=== PATIENT | female | born 1990 | race Caucasian/White ===

== ENCOUNTER 2016-07-13 09:03 | Emergency (ER) | payer OTHER ==
[~2016-07-13] VITALS: Ht 157.5 cm; Wt 110.0 kg
[~2016-07-13 09:03] MED LIST: ACET500C5 PO; ALBU18HF IH; ALBU8.5H5 INH; IBUP-725; PRED20TA PO
[2016-07-13 09:06] VITALS: Ht 157.5 cm; Wt 110.0 kg
[2016-07-13] MEDS ORDERED: SOD CHLORIDE 0.9% 1,000 ML IV STA (10:00)
[2016-07-13] MEDS ORDERED: KETOROLAC 30 MG INJ IV STA (10:00)
[2016-07-13] MEDS ORDERED: FAMOTIDINE 20 MG INJ IV ONE (10:00)
--- NOTE | 2016-07-13 10:03 | ERD ---
ER Documentation Chief Complaint Date/Time DATE: 07/13/16 Chief Complaint Abdominal pain HPI The patient is a 26-year-old female who presents to the Emergency Department with complaint of abdominal pain for the past 3 days. The patient reports that her pain is localized to the epigastric region of her abdomen, and radiates to the right upper quadrant. The pain is intermittent and aching in nature, which she currently rates as 6 out of 10. The patient notes a decreased appetite, but otherwise denies any nausea, vomiting or diarrhea. Denies any black or bloody stools. Denies any dysuria, hematuria or flank pain. Denies any fevers or chills. Last bowel movement was this morning, and normal. Denies any history of similar symptoms in the past. ROS All systems reviewed and are negative except as per history of present illness. Medications Home Meds Active Scripts Ibuprofen* (Motrin*) 600 Mg Tab, 600 MG PO Q6, #30 TAB Prov:BELINDA LEWIS PA-C 07/13/16 Famotidine* (Pepcid*) 20 Mg Tablet, 20 MG PO BID for 5 Days, TAB Prov:BELINDA LEWIS PA-C 07/13/16 Hydrocodone/Acetaminophen (Madison 5-325 Tablet) 1 Each Tablet, 1 EACH PO Q4, #15 TAB Prov:BELINDA LEWIS PA-C 07/13/16 Acetaminophen* (Tylophen*) 500 Mg Capsule, 1 CAP PO Q6H Y for PAIN AND OR ELEVATED TEMP, #20 CAP Prov:YUAN MULLEN 11/23/14 Prednisone* (Prednisone*) 20 Mg Tab, 40 MG PO DAILY for 4 Days, TAB Prov:YUAN MULLEN 11/23/14 Albuterol Sulfate* (Albuterol Sulfate* HFA) 8.5 Gm Hfa.aer.ad, 1-2 PUFF INH Q4 Y for SHORTNESS OF BREATH, #1 EA Prov:JERE TAN NP 11/18/14 Reported Medications Albuterol Sulfate* (Ventolin HFA*) 18 Gm Hfa.aer.ad, 18 GM IH DAILY 03/04/12 Ibuprofen (Motrin) 400 Mg Tablet 01/13/12 Allergies Allergies: Uncoded Allergies: SHRIMP (Allergy, Unknown, ITCHY THROAT RASH, 11/08/09) PMhx/Soc History of Surgery: Yes ( X 2) Anesthesia Reaction: No Hx Neurological Disorder: No Hx Respiratory Disorders: Yes (asthma) Hx Cardiac Disorders: No Hx Psychiatric Problems: No Hx Miscellaneous Medical Probl: No Hx Alcohol Use: No Hx Substance Use: No Hx Tobacco Use: No Smoking Status: Never smoker Physical Exam Vitals Vital Signs Date Time Temp Pulse Resp B/P Pulse Ox O2 Delivery O2 Flow Rate FiO2 07/13/16 09:06 97.8 62 18 122/62 99 Physical Exam GENERAL: Well-developed, well-nourished, in no acute distress HEENT: Head is normocephalic, atraumatic. No scleral pallor or icterus. Conjunctiva pink. Moist mucous membranes. NECK: Supple. Full range of motion. RESPIRATORY: Lungs are clear to auscultation bilaterally. Equal breath sounds. Normal expiratory effort. CARDIOVASCULAR: Regular rate and rhythm. S1 and S2 normal. GASTROINTESTINAL: Abdomen is soft and nondistended. Tenderness to palpation over the epigastric region and right upper quadrant of the abdomen. Negative Christine's sign. No guarding, no rebound tenderness. Normal bowel sounds. No gross peritonitis. No tenderness at McBurney's point. FLANK: No CVA tenderness, no mass or swelling. EXTREMITIES: No clubbing, cyanosis, or edema. Normal skin perfusion. Moving all extremities. NEUROLOGIC: The patient is alert, awake, and oriented. INTEGUMENT: Skin is clean, dry and intact. No rashes, lesions, vesicles or petechiae present. PSYCHIATRIC: Appropriate; Cooperative. Result Diagram: 07/13/16 1024 07/13/16 1024 Results 24 hrs Laboratory Tests Test 07/13/16 10:05 07/13/16 10:24 Urine Color LT. YELLOW Urine Clarity SLIGHTLY CLOUDY Urine pH 6.0 Urine Specific [place] 1.025 Urine Ketones NEGATIVE Urine Nitrite NEGATIVE Urine Bilirubin NEGATIVE Urine Urobilinogen 0.2 E.U./dL Urine Leukocyte Esterase NEGATIVE Urine Microscopic RBC 5-10/HPF Urine Microscopic WBC 0-2/HPF Urine Epithelial Cells MODERATE Urine Bacteria FEW Urine Hemoglobin 3+ Urine Glucose 0.25%% Urine Total Protein NEGATIVE White Blood Count 9.110^3/ul Red Blood Count 4.7410^6/ul Hemoglobin 12.7g/dl Hematocrit 37.8% Mean Corpuscular Volume 79.7fl Mean Corpuscular Hemoglobin 26.8pg Mean Corpuscular Hemoglobin Concent 33.6g/dl Red Cell Distribution Width 13.5% Platelet Count 68451^3/UL Mean Platelet Volume 10.7fl Neutrophils % 71.6% Lymphocytes % 18.5% Monocytes % 6.5% Eosinophils % 3.0% Basophils % 0.2% Nucleated Red Blood Cells % 0.0/100WBC Neutrophils # 6.610^3/ul Lymphocytes # 1.710^3/ul Monocytes # 0.610^3/ul Eosinophils # 0.310^3/ul Basophils # 0.010^3/ul Nucleated Red Blood Cells # 0.010^3/ul Prothrombin Time 12.3Sec Prothrombin Time Ratio 1.0 INR International Normalized Ratio 0.91 Activated Partial Thromboplast Time 27.6Sec Sodium Level 142mmol/L Potassium Level 4.1mmol/L Chloride Level 101mmol/L Carbon Dioxide Level 26mmol/L Anion Gap 19 Blood Urea Nitrogen 11mg/dl Creatinine 0.54mg/dl Glucose Level 227mg/dl Calcium Level 9.1mg/dl Total Bilirubin 0.5mg/dl Direct Bilirubin 0.00mg/dl Indirect Bilirubin 0.5mg/dl Aspartate Amino Transf (AST/SGOT) 70IU/L Alanine Aminotransferase (ALT/SGPT) 108IU/L Alkaline Phosphatase 100IU/L Total Protein 7.7g/dl Albumin 4.0g/dl Globulin 3.70g/dl Albumin/Globulin Ratio 1.08 Lipase 63U/L Current Medications Medications (Trade) Dose Ordered Sig/Erich Route PRN Reason Start Time Stop Time Status Last Admin Dose Admin Sodium Chloride (NS) 1,000 ml @ 1,000 mls/hr Q1H STAT IV 07/13/16 10:00 07/13/16 10:59 DC 07/13/16 10:18 Ketorolac Tromethamine (Toradol) 30 mg ONCE STAT IV 07/13/16 10:00 07/13/16 10:02 DC 07/13/16 10:17 Famotidine (Pepcid Iv) 20 mg ONCE ONCE IV 07/13/16 10:00 07/13/16 10:02 DC 07/13/16 10:17 Morphine Sulfate (morphine) 6 mg ONCE STAT IV 07/13/16 11:19 07/13/16 11:20 DC 07/13/16 11:28 Ondansetron HCl (Zofran Inj) 4 mg ONCE STAT IV 07/13/16 11:19 07/13/16 11:20 DC 07/13/16 11:27 Miscellaneous Medication (Gi Cocktail (2)) 40 ml ONCE ONCE PO 07/13/16 12:30 07/13/16 12:31 DC 07/13/16 12:33 Procedures/MDM DIAGNOSTIC TESTS AND INTERPRETATION: PROCEDURE: Abdominal Ultrasound (right upper quadrant). CLINICAL INDICATION: Abdominal pain TECHNIQUE: Multiple real-time longitudinal and transverse images of the right upper quadrant of the abdomen were acquired utilizing a curved array transducer. Images were reviewed on a high-resolution PACS workstation. COMPARISON: CT abdomen pelvis 01/13/2012 FINDINGS: Study is limited due to patient body habitus. Portions of the liver are not visualized. The visualized portions demonstrate increased echogenicity consistent with fatty infiltration. The liver appears mildly enlarged. No focal masses are identified. There is no evidence of intra or extrahepatic ductal dilatation. The common bile duct measures 4.8 mm in diameter. No gallstones or gallbladder wall thickening is seen. The visualized portions of the pancreas are unremarkable with obscuration of the tail of the pancreas. No free fluid is identified. There is no evidence of right hydronephrosis or renal calcification. The right kidney measures 12.2 cm in length. The visualized portions of the aorta and inferior vena cava are within normal limits. IMPRESSION: 1. Study limited by patient body habitus and subsequent underpenetration. 2. Enlarged, fatty liver. 3. Otherwise grossly unremarkable ultrasound of the right upper quadrant. .Rubin Kingston MD, MD Date Time Electronically viewed and signed by .Rubin Kingston MD, on 2016 11:05 The patient's case was discussed and reviewed with Dr. Abhishek Herrmann, ED attending physician, who recommends that the patient be discharged home with rx for Madison and Ibuprofen, and that she follow up with her PMD and Dr. Paz as an outpatient. He states that this time, further evaluation or imaging is not indicated. MEDICAL DECISION MAKING: This is a 26-year-old female presenting to the Emergency Department with complaint of epigastric abdominal pain for 3 days. On physical examination, the patient had tenderness to palpation over the epigastrium and right upper quadrant, but otherwise vital signs were stable. Differential diagnosis includes, but is not limited to, gastroenteritis, gastritis, cholecystitis, cholangitis, choledocholithiasis, pancreatitis, perforated viscus, mesenteric ischemia, GERD, PUD, urinary tract infection, acute coronary syndrome, pyelonephritis, pneumonia, hepatitis, infectious diarrhea, IBD, aortic dissection, torsion, bowel obstruction, appendicitis, diverticulitis. Laboratory analysis revealed a transaminitis and elevated glucose. Otherwise, no significant acute abnormalities were noted on laboratory or imaging modalities ordered. She had no leukocytosis, no significant electrolyte abnormalities. Ultrasound imaging with no evidence of cholelitiasis, cholecystitis, choledocholithiasis. Lipase is normal. After rest and administration of fluids and medications, the patient reports no new complaints and decreased pain and symptoms. Upon review and interpretation of the patient's presentation and overall ER course, I believe the patient's symptoms are most consistent with epigastric abdominal pain, uncertain etiology, but possibly secondary to gastritis, and less likely secondary to biliary colic. I doubt cholecystitis, no abnormalities or indication of disease process noted on ultrasound, negative Christine's sign. Doubt acute coronary syndrome - symptoms and examination inconsistent. Doubt pancreatitis - clinical presentation inconsistent. Doubt perforated ulcer, patient has a non-surgical abdomen. Doubt small bowel obstruction, patient is passing flatus, abdomen is non-distended. Doubt appendicitis, patient has no McBurney's point tenderness, no guarding, non- surgical abdomen, no tenderness over the RLQ. Doubt diverticulitis, exam inconsistent. Doubt ischemic bowel, no pain out of proportion to examination. Doubt torsion, symptoms and examination inconsistent. At this time the patient is in stable condition and therefore can be discharged home with prescriptions for Madison, Pepcid and Ibuprofen and strict return precautions for signs of deteriorating or worsening condition. She is advised to follow up with her primary care provider in 1-2 days for reevaluation and further management, or return to the ER sooner if symptoms worsen. Additionally , Dr. Paz's information was provided for follow up and further evaluation as well. I shared my medical decision making, plan, as well as the results with the patient and she understands and agrees with the plan for further observation and care as an outpatient. At the time of discharge, all questions were answered. Departure Diagnosis: Primary Impression: Epigastric abdominal pain Condition: Stable Patient Instructions: Epigastric Pain (Uncertain Cause) Referrals: BIENVENIDO PAZ M.D. Additional Instructions: Call your primary care doctor TOMORROW for an appointment during the next 1-2 days.See the doctor sooner or return here if your condition worsens before your appointment time. BELINDA LEWIS PA-C Jul 13, 2016 10:03
[2016-07-13 10:31] LABS: ADD SCAN DIFF NO
[2016-07-13 10:37] LABS: ADD UMIC YES; URINE BILIRUBIN (Dip) NEGATIVE (NEGATIVE); URINE BLOOD (Dip) 3+ (NEGATIVE); URINE COLOR LT. YELLOW (YELLOW); URINE KETONES (Dip) NEGATIVE (NEGATIVE); URINE LEUKOCYTE ESTERASE (Dip) NEGATIVE (NEGATIVE); URINE NITRITE (Dip) NEGATIVE (NEGATIVE); URINE TOTAL PROTEIN (Dip) NEGATIVE (NEGATIVE); URINE UROBILINOGEN (Dip) 0.2 E.U./dL (0.1-1.0)
[2016-07-13 10:37] LABS: BASOPHILS % 0.2 % (0.0-2.0); EOSINOPHILS # 0.3 10^3/ul (0.0-0.5); HEMATOCRIT 37.8 % (37.0-47.0); HEMOGLOBIN 12.7 g/dl (12.0-16.0); LYMPHOCYTES # 1.7 10^3/ul (0.8-2.9); LYMPHOCYTES % 18.5 % (15.0-51.0); MEAN CORPUSCULAR HEMOGLOBIN 26.8 pg (29.0-33.0); MEAN CORPUSCULAR HGB CONC 33.6 g/dl (32.0-37.0); MEAN CORPUSCULAR VOLUME 79.7 fl (82.0-101.0); MEAN PLATELET VOLUME 10.7 fl (7.4-10.4); MONOCYTE # 0.6 10^3/ul (0.3-0.9); MONOCYTES % 6.5 % (0.0-11.0); NEUTROPHIL # 6.6 10^3/ul (1.6-7.5); NEUTROPHILS % 71.6 % (39.0-77.0); PLATELET COUNT 308 10^3/UL (140-415); RED BLOOD COUNT 4.74 10^6/ul (4.20-5.40); RED CELL DISTRIBUTION WIDTH 13.5 % (11.5-14.5); WHITE BLOOD COUNT 9.1 10^3/ul (4.8-10.8)
[2016-07-13 10:46] LABS: POTASSIUM 4.1 mmol/L (3.5-5.1)
[2016-07-13 10:48] LABS: ALBUMIN/GLOBULIN RATIO 1.08; BILIRUBIN,INDIRECT 0.5 mg/dl (0-1.1); BILIRUBIN,TOTAL 0.5 mg/dl (0.2-1.3); CREATININE 0.54 mg/dl (0.44-1.00); TOTAL PROTEIN 7.7 g/dl (6.1-8.1)
[2016-07-13 10:49] LABS: CALCIUM 9.1 mg/dl (8.4-10.2)
[2016-07-13 10:54] LABS: BACTERIA,URINE FEW
[2016-07-13 11:00] LABS: INR 0.91; PROTIME 12.3 Sec (12.2-14.2)
[2016-07-13 11:01] LABS: PARTIAL THROMBOPLASTIN TIME 27.6 Sec (25.0-35.0)
--- NOTE | 2016-07-13 11:05 | RADRPT ---
PROCEDURE: Abdominal Ultrasound (right upper quadrant). CLINICAL INDICATION: Abdominal pain TECHNIQUE: Multiple real-time longitudinal and transverse images of the right upper quadrant of th e abdomen were acquired utilizing a curved array transducer. Images were reviewed on a high-resoluti on PACS workstation. COMPARISON: CT abdomen pelvis 01/13/2012 FINDINGS: Study is limited due to patient body habitus. Portions of the liver are not visualized. The visual ized portions demonstrate increased echogenicity consistent with fatty infiltration. The liver appe ars mildly enlarged. No focal masses are identified. There is no evidence of intra or extrahepatic ductal dilatation. The common bile duct measures 4.8 mm in diameter. No gallstones or gallbladder wall thickening is seen. The visualized portions of the pancreas are unremarkable with obscuration of the tail of the pancrea s. No free fluid is identified. There is no evidence of right hydronephrosis or renal calcification. The right kidney measures 12.2 cm in length. The visualized portions of the aorta and inferior vena cava are within normal limits. IMPRESSION: 1. Study limited by patient body habitus and subsequent underpenetration. 2. Enlarged, fatty liver. 3. Otherwise grossly unremarkable ultrasound of the right upper quadrant. RPTAT: KK .Rubin Kingston MD, Date Time Electronically viewed and signed by .Rubin Kingston MD, MD on 07/13/2016 11:05 .B/
[2016-07-13] MEDS ORDERED: morphine 4 MG/ML VIAL IV STA (11:19)
[2016-07-13] MEDS ORDERED: ONDANSETRON 4 MG INJ IV STA (11:19)
[2016-07-13] MEDS ORDERED: HYDR-906 PO (11:48)
[2016-07-13] MEDS ORDERED: FAMO-18 PO (11:49)
[2016-07-13] MEDS ORDERED: IBUP-1542 PO (11:49)
[2016-07-13] MEDS ORDERED: LIDOCAINE/MYLANTA 40 ML BTL PO ONE (12:30)
== END 2016-07-13 13:13 | disposition home or self-care (01) ==
LOC: FTE 09:03
DX: R10.13 Epigastric pain (principal); J45.909 Unspecified asthma, uncomplicated
CPT/HCPCS: 36415; 76705; 80053; 81001; 83690; 85025; 85610; 85730; 87086; 96374; 96375; J1885; J2270; J2405; J7030; Z7502; Z7610; 81003

== ENCOUNTER 2017-01-03 05:17 | Emergency (ER) | payer OTHER ==
[~2017-01-03] VITALS: Ht 160 cm; Wt 113.6 kg
[~2017-01-03 05:17] MED LIST changes: +FAMO-96 PO; +HYDR-906 PO; +IBUP-1542 PO
[2017-01-03 05:30] VITALS: Ht 160 cm; Wt 113.6 kg
[2017-01-03] MEDS ORDERED: ONDANSETRON 4 MG INJ IV STA (06:17)
[2017-01-03] MEDS ORDERED: SOD CHLORIDE 0.9% 1,000 ML IV STA (06:17)
[2017-01-03] MEDS ORDERED: KETOROLAC 30 MG INJ IV STA (06:17)
[2017-01-03 07:03] LABS: BASOPHILS % 0.3 % (0.0-2.0); EOSINOPHILS # 0.1 10^3/ul (0.0-0.5); EOSINOPHILS % 1.2 % (0.0-7.0); HEMOGLOBIN 11.8 g/dl (12.0-16.0); LYMPHOCYTES # 2.1 10^3/ul (0.8-2.9); LYMPHOCYTES % 17.6 % (15.0-51.0); MEAN CORPUSCULAR HEMOGLOBIN 26.7 pg (29.0-33.0); MEAN CORPUSCULAR HGB CONC 33.7 g/dl (32.0-37.0); MEAN CORPUSCULAR VOLUME 79.2 fl (82.0-101.0); MEAN PLATELET VOLUME 10.3 fl (7.4-10.4); MONOCYTE # 0.6 10^3/ul (0.3-0.9); MONOCYTES % 5.2 % (0.0-11.0); NEUTROPHILS % 75.4 % (39.0-77.0); PLATELET COUNT 330 10^3/UL (140-415); RED BLOOD COUNT 4.42 10^6/ul (4.20-5.40); RED CELL DISTRIBUTION WIDTH 13.2 % (11.5-14.5); WHITE BLOOD COUNT 11.8 10^3/ul (4.8-10.8)
[2017-01-03 07:17] LABS: ADD UMIC YES; UR ASCORBIC ACID NEGATIVE (NEGATIVE); UR BILIRUBIN (Dip) NEGATIVE (NEGATIVE); UR BLOOD (Dip) NEGATIVE (NEGATIVE); UR CLARITY CLEAR (CLEAR); UR COLOR YELLOW (YELLOW); UR GLUCOSE (Dip) 1+ mg/dL (NEGATIVE); UR KETONES (Dip) NEGATIVE (NEGATIVE); UR LEUKOCYTE ESTERASE (Dip) NEGATIVE Leu/ul (NEGATIVE); UR MUCUS MODERATE /HPF (NONE SEEN); UR NITRITE (Dip) NEGATIVE (NEGATIVE); UR RBC 1 /HPF (0-5); UR SPECIFIC GRAVITY (Dip) 1.026 (1.003-1.030); UR SQUAMOUS EPITHELIAL CELL FEW /HPF (FEW); UR TOTAL PROTEIN (Dip) 2+ mg/dl (NEGATIVE); UR UROBILINOGEN (Dip) NEGATIVE (NEGATIVE)
[2017-01-03 07:27] LABS: ALBUMIN 4.1 g/dl (3.3-4.9); ALBUMIN/GLOBULIN RATIO 1.13; BILIRUBIN,INDIRECT 0.2 mg/dl (0-1.1); BILIRUBIN,TOTAL 0.2 mg/dl (0.2-1.3); CALCIUM 9.5 mg/dl (8.4-10.2); CREATININE 0.53 mg/dl (0.44-1.00); POTASSIUM 4.4 mmol/L (3.5-5.1); TOTAL PROTEIN 7.7 g/dl (6.1-8.1)
--- NOTE | 2017-01-03 07:49 | RADRPT ---
PROCEDURE: US Abdomen (right upper quadrant). CLINICAL INDICATION: Abdominal pain. TECHNIQUE: Multiple real-time longitudinal and transverse images of the right upper quadrant of th e abdomen were acquired utilizing a curved array transducer. Images were reviewed on a high-resoluti on PACS workstation. COMPARISON: Ultrasound the abdomen 07/13/2016. FINDINGS: The liver is mildly enlarged and 19.6 cm in length with a coarsened echotexture suggesting steatosis without focal mass or intrahepatic biliary dilatation. There is normal hepatopedal flow within the main portal vein. The gallbladder is well displayed without filling defects or wall thickening. The common bile duct measures 5.4 mm in maximal dimension. The visualized portions of the pancreas are unremarkable with obscuration of the tail of the pancreas. No free fluid is identified. The right kidney measures 12.4 cm in length. There is normal echogenicity within the right kidney. There is no perinephric fluid collection. No hydronephrosis, mass, or calculus is seen. IMPRESSION: 1. Mild hepatomegaly with diffuse hepatic steatosis. 2. Gallbladder and biliary tree appear unremarkable. RPTAT: [facility] Physician Zana Date Time Electronically viewed and signed by Physician Zana on 01/03/2017 07:49 /
[2017-01-03] MEDS ORDERED: morphine 2 MG INJ IV ONE (08:30)
[2017-01-03] MEDS ORDERED: SOD CHLORIDE 0.9% 100 ML ONE (08:58)
[2017-01-03] MEDS ORDERED: IODIXANOL LOCM 100 ML BTL ONE (08:58)
--- NOTE | 2017-01-03 10:06 | RADRPT ---
PROCEDURE: CT Abdomen and Pelvis with contrast. CLINICAL INDICATION: Midepigastric pain. TECHNIQUE: Multiple contiguous axial CT images of the abdomen and pelvis were obtained following t he administration of 100 cc of Visipaque 320. Coronal and sagittal reconstructions were also perfor med. CTDIvol (mGy): 23.69; Total Exam DLP (mGy-cm): 1465.62. One or more of the following dose reduction techniques were utilized: - Automated exposure control. - Adjustment of the mA and/or kV according to patient size. - Use of iterative reconstruction technique. COMPARISON: Gallbladder ultrasound 01/03/2017. CT abdomen/pelvis 01/13/2012. FINDINGS: Limited imaging of the lower thorax is unremarkable. The liver and spleen are homogeneous in enhancement. The liver is enlarged measuring 23.0 cm in a c raniocaudal dimension, which is grossly unchanged. The gallbladder, pancreas and adrenal glands are unremarkable. The kidneys are symmetric in size and enhancement. There is no hydronephrosis or abnormal perinephr ic inflammation. There are no ureteral stones. The abdominal aorta is normal in caliber. There is no periaortic / retroperitoneal lymphadenopathy. The stomach and small and large intestines are unremarkable. The appendix is normal. There are no focal inflammatory changes of the mesentery. There is no mesenteric lymphadenopathy. There is no a scites. The bladder, uterus and adnexa are unremarkable. There is no free pelvic fluid. There is no pelvic sidewall or inguinal lymphadenopathy. Skeletal structures are unremarkable. Body wall soft tissues are unremarkable. IMPRESSION: No evidence of abdominopelvic mass, lymphadenopathy or acute inflammatory pathology. Stable hepatomegaly. RPTAT: [facility] .Aixa Kc MD, Date Time Electronically viewed and signed by .Aixa Kc MD, on 01/03/2017 10:05 .T/
[2017-01-03] MEDS ORDERED: FAMO-96 PO (10:17)
[2017-01-03 10:31] VITALS: PULSE 75; RESP 18
--- NOTE | 2017-01-03 11:45 | ERD ---
ER Documentation Chief Complaint Date/Time DATE: 01/03/17 TIME: 11:33 Chief Complaint mid ap since last night vomit x1. denies diarrhea. +hotflashes HPI 26-year-old female complaining of epigastric pain 1 day. Pain is constant and feels that she has chills. Denies chest pain or shortness of breath. Patient did vomit once. She took Tums with no alleviation of symptoms. Denies fever. Denies sick contacts. Has never had this before. Rates the pain 8 out of 10. Medical history: Asthma and diabetes NKDA Surgical history: Denies Social history: Denies LNMP: 2-3 days ago ROS All systems reviewed and are negative except as per history of present illness. Medications Home Meds Active Scripts Famotidine* (Pepcid*) 20 Mg Tablet, 20 MG PO BID for 4 Days, TAB Prov:MAT FU PA-C 01/03/17 Ibuprofen* (Motrin*) 600 Mg Tab, 600 MG PO Q6, #30 TAB Prov:BELINDA LEWIS PA-C 07/13/16 Famotidine* (Pepcid*) 20 Mg Tablet, 20 MG PO BID for 5 Days, TAB Prov:BELINDA LEWIS PA-C 07/13/16 Hydrocodone/Acetaminophen ([place] 5-325 Tablet) 1 Each Tablet, 1 EACH PO Q4, #15 TAB Prov:BELINDA LEWIS PA-C 07/13/16 Acetaminophen* (Tylophen*) 500 Mg Capsule, 1 CAP PO Q6H Y for PAIN AND OR ELEVATED TEMP, #20 CAP Prov:YUAN MULLEN 11/23/14 Prednisone* (Prednisone*) 20 Mg Tab, 40 MG PO DAILY for 4 Days, TAB Prov:YUAN MULLEN 11/23/14 Albuterol Sulfate* (Albuterol Sulfate* HFA) 8.5 Gm Hfa.aer.ad, 1-2 PUFF INH Q4 Y for SHORTNESS OF BREATH, #1 EA Prov:JERE TAN TAPPING MACHINE OPERATOR AUTOMATIC 11/18/14 Reported Medications Albuterol Sulfate* (Ventolin HFA*) 18 Gm Hfa.aer.ad, 18 GM IH DAILY 03/04/12 Ibuprofen (Motrin) 400 Mg Tablet 01/13/12 Allergies Allergies: Coded Allergies: No Known Drug Allergy (Verified Allergy, Unknown, 01/03/17) Uncoded Allergies: SHRIMP (Allergy, Unknown, ITCHY THROAT RASH, 11/08/09) PMhx/Soc History of Surgery: Yes ( X 2) Anesthesia Reaction: No Hx Neurological Disorder: No Hx Respiratory Disorders: Yes (asthma) Hx Cardiac Disorders: No Hx Psychiatric Problems: No Hx Miscellaneous Medical Probl: No Hx Alcohol Use: No Hx Substance Use: No Hx Tobacco Use: No Smoking Status: Never smoker Physical Exam Vitals Vital Signs Date Time Temp Pulse Resp B/P Pulse Ox O2 Delivery O2 Flow Rate FiO2 01/03/17 10:31 75 18 97 Room Air 01/03/17 05:30 97.4 81 18 130/69 98 Physical Exam GENERAL: The patient is well-appearing, well-nourished, in no acute distress HEENT: Atraumatic. Conjunctivae are pink. Pupils equal, round, and reactive to light. There is no scleral icterus. Tympanic membranes clear bilaterally. Oropharynx clear. No nystagmus or photophobia. NECK: C-spine is soft and supple. There is no meningismus. There is no cervical lymphadenopathy. No JVD. No bruits. No goiter. CHEST: Clear to auscultation bilaterally. There are no rales, wheezes or rhonchi. HEART: Regular rate and rhythm. No murmurs, clicks, rubs or gallops. No S3 or S4. ABDOMEN:Soft, nondistended. Good bowel sounds. No rebound or guarding. No gross peritonitis. No gross organomegaly or masses. Tenderness palpation in the right upper quadrant. BACK: No midline or flank tenderness. Result Diagram: 01/03/17 0645 01/03/17 0645 Results 24 hrs Laboratory Tests Test 01/03/17 06:42 01/03/17 06:45 Urine Color YELLOW Urine Clarity CLEAR Urine pH 5.0 Urine Specific [place] 1.026 Urine Ketones NEGATIVEmg/dL Urine Nitrite NEGATIVEmg/dL Urine Bilirubin NEGATIVEmg/dL Urine Urobilinogen NEGATIVEmg/dL Urine Leukocyte Esterase NEGATIVELeu/ul Urine Microscopic RBC 1/HPF Urine Microscopic WBC 1/HPF Urine Squamous Epithelial Cells FEW/HPF Urine Mucus MODERATE/HPF Urine Hemoglobin NEGATIVEmg/dL Urine Glucose 1+mg/dL Urine Total Protein 2+mg/dl White Blood Count 11.810^3/ul Red Blood Count 4.4210^6/ul Hemoglobin 11.8g/dl Hematocrit 35.0% Mean Corpuscular Volume 79.2fl Mean Corpuscular Hemoglobin 26.7pg Mean Corpuscular Hemoglobin Concent 33.7g/dl Red Cell Distribution Width 13.2% Platelet Count 93898^3/UL Mean Platelet Volume 10.3fl Neutrophils % 75.4% Lymphocytes % 17.6% Monocytes % 5.2% Eosinophils % 1.2% Basophils % 0.3% Nucleated Red Blood Cells % 0.0/100WBC Neutrophils # (Manual) 8.910^3/ul Lymphocytes # 2.110^3/ul Monocytes # 0.610^3/ul Eosinophils # 0.110^3/ul Basophils # 0.010^3/ul Nucleated Red Blood Cells # 0.010^3/ul Sodium Level 137mmol/L Potassium Level 4.4mmol/L Chloride Level 106mmol/L Carbon Dioxide Level 24mmol/L Anion Gap 11 Blood Urea Nitrogen 10mg/dl Creatinine 0.53mg/dl Glucose Level 238mg/dl Calcium Level 9.5mg/dl Total Bilirubin 0.2mg/dl Direct Bilirubin 0.00mg/dl Indirect Bilirubin 0.2mg/dl Aspartate Amino Transf (AST/SGOT) 26IU/L Alanine Aminotransferase (ALT/SGPT) 55IU/L Alkaline Phosphatase 85IU/L Total Protein 7.7g/dl Albumin 4.1g/dl Globulin 3.60g/dl Albumin/Globulin Ratio 1.13 Lipase 57U/L Serum HCG, Qualitative NEGATIVE Current Medications Medications (Trade) Dose Ordered Sig/Erich Route PRN Reason Start Time Stop Time Status Last Admin Dose Admin Sodium Chloride (NS) 1,000 ml @ 1,000 mls/hr Q1H STAT IV 01/03/17 06:17 01/03/17 07:16 DC 01/03/17 06:48 Ondansetron HCl (Zofran Inj) 4 mg ONCE STAT IV 01/03/17 06:17 01/03/17 06:18 DC 01/03/17 06:46 Ketorolac Tromethamine (Toradol) 30 mg ONCE STAT IV 01/03/17 06:17 01/03/17 06:18 DC 01/03/17 06:46 Morphine Sulfate (morphine) 2 mg ONCE ONCE IV 01/03/17 08:30 01/03/17 08:31 DC 01/03/17 08:14 IV Flush 10 ml 10 ml STK-MED ONCE .ROUTE 01/03/17 08:58 01/03/17 08:59 DC 01/03/17 09:45 Sodium Chloride (NS) 100 ml @ ud STK-MED ONCE .ROUTE 01/03/17 08:58 01/03/17 08:59 DC 01/03/17 09:46 Iodixanol (Visipaque Locm) 100 ml STK-MED ONCE .ROUTE 01/03/17 08:58 01/03/17 08:59 DC 01/03/17 09:46 Procedures/MDM DIAGNOSTIC IMAGING REPORT Patient: SALOMON TREVINO : 1990 Age: 26 Sex: F MR #: [id number] DOS: 01/03/17 0617 Ordering MD: SALOMON FU PA-C Location: [facility] Room/Bed: PROCEDURE: US Abdomen (right upper quadrant). CLINICAL INDICATION: Abdominal pain. TECHNIQUE: Multiple real-time longitudinal and transverse images of the right upper quadrant of the abdomen were acquired utilizing a curved array transducer. Images were reviewed on a high-resolution PACS workstation. COMPARISON: Ultrasound the abdomen 07/13/2016. FINDINGS: The liver is mildly enlarged and 19.6 cm in length with a coarsened echotexture suggesting steatosis without focal mass or intrahepatic biliary dilatation. There is normal hepatopedal flow within the main portal vein. The gallbladder is well displayed without filling defects or wall thickening. The common bile duct measures 5.4 mm in maximal dimension. The visualized portions of the pancreas are unremarkable with obscuration of the tail of the pancreas. No free fluid is identified. The right kidney measures 12.4 cm in length. There is normal echogenicity within the right kidney. There is no perinephric fluid collection. No hydronephrosis, mass, or calculus is seen. IMPRESSION: 1. Mild hepatomegaly with diffuse hepatic steatosis. 2. Gallbladder and biliary tree appear unremarkable. DIAGNOSTIC IMAGING REPORT Patient: SALOMON TREVINO : 1990 Age: 26 Sex: F MR #: [id number] DOS: 01/03/17 0846 Ordering MD: SALOMON FU PA-C Location: [facility] Room/Bed: PROCEDURE: CT Abdomen and Pelvis with contrast. CLINICAL INDICATION: Midepigastric pain. TECHNIQUE: Multiple contiguous axial CT images of the abdomen and pelvis were obtained following the administration of 100 cc of Visipaque 320. Coronal and sagittal reconstructions were also performed. CTDIvol (mGy): 23.69; Total Exam DLP (mGy-cm): 1465.62. One or more of the following dose reduction techniques were utilized: - Automated exposure control. - Adjustment of the mA and/or kV according to patient size. - Use of iterative reconstruction technique. COMPARISON: Gallbladder ultrasound 01/03/2017. CT abdomen/pelvis 01/13/2012. FINDINGS: Limited imaging of the lower thorax is unremarkable. The liver and spleen are homogeneous in enhancement. The liver is enlarged measuring 23.0 cm in a craniocaudal dimension, which is grossly unchanged. The gallbladder, pancreas and adrenal glands are unremarkable. The kidneys are symmetric in size and enhancement. There is no hydronephrosis or abnormal perinephric inflammation. There are no ureteral stones. The abdominal aorta is normal in caliber. There is no periaortic / retroperitoneal lymphadenopathy. The stomach and small and large intestines are unremarkable. The appendix is normal. There are no focal inflammatory changes of the mesentery. There is no mesenteric lymphadenopathy. There is no ascites. The bladder, uterus and adnexa are unremarkable. There is no free pelvic fluid. There is no pelvic sidewall or inguinal lymphadenopathy. Skeletal structures are unremarkable. Body wall soft tissues are unremarkable. IMPRESSION: No evidence of abdominopelvic mass, lymphadenopathy or acute inflammatory pathology. Stable hepatomegaly. ER Course: 1 L normal saline, IV Toradol and IV morphine given in ED. Patient' s pain control. MDM: I have low suspicion for bowel obstruction, appendicitis, choledocholithiasis, cholecystitis, cholangitis, pancreatitis. Patient's imaging and blood work is within normal limits. I have low suspicion for diverticulitis or pelvic emergency. Patient's pain is localized to the epigastric region. I have low suspicion for cardiac emergency or pulmonary emergency as patient's exam is non-concerning complaint is not associated with chest pain. Patient will be discharged with pain medication and recommended to follow-up with primary care within 1-2 days for close evaluation. Patient is told to return to the ER symptoms change or worsen. Patient understood and complied with plan. Departure Diagnosis: Primary Impression: Abdominal pain Condition: Stable Patient Instructions: Abdominal Pain Referrals: SHEYLA LOERA (PCP) Additional Instructions: FOLLOW UP WITH YOUR PRIMARY CARE PHYSICIAN TOMORROW.Return to this facility if you are not improving as expected. MAT FU PA-C Jan 03, 2017 11:45
== END 2017-01-03 10:32 | disposition home or self-care (01) ==
LOC: FTE 05:17
DX: R10.11 Right upper quadrant pain (principal); J45.909 Unspecified asthma, uncomplicated; E11.9 Type 2 diabetes mellitus without complications; R11.10 Vomiting, unspecified
CPT/HCPCS: 36415; 74177; 76705; 80053; 81001; 83690; 84703; 85025; 96374; 96375; J1885; J2270; J2405; J7030; Q9967; Z7502; Z7610

== ENCOUNTER 2017-02-08 11:09 | Emergency (ER) | payer OTHER ==
[~2017-02-08] VITALS: Wt 118.2 kg
[2017-02-08] MEDS ORDERED: IPRATROPIUM (NEB) 0.5 MG/2.5 ML AMP INH STA (13:13)
[2017-02-08] MEDS ORDERED: ALBUTEROL 0.5% (NEB) 2.5 MG/0.5 ML AMP INH STA (13:13)
[2017-02-08] MEDS ORDERED: DEXAMETHASONE 10 MG/ML 1 ML INJ IM STA (13:13)
[2017-02-08] MEDS ORDERED: ALBUTEROL 0.083% (NEB) 2.5 MG/3 ML AMP NEB STA (14:43)
--- NOTE | 2017-02-08 15:11 | ERD ---
ER Documentation Chief Complaint Date/Time DATE: 02/08/17 TIME: 15:11 Chief Complaint cough, congestion, fever HPI 89-year-old female with history of asthma presents to the emergency department complaining of cough, shortness of breath, congestion and fever for the past 2 days. Patient denies any chest pain however states that she feels that she has congestion stuck in her chest. She states that she out of her albuterol. She states that she took [id number] medications. ROS All systems reviewed and are negative except as per history of present illness. Medications Home Meds Active Scripts Benzonatate* (Tessalon Perle*) 100 Mg Capsule, 100 MG PO Q8H Y for COUGH, #20 CAP Prov:LAMBERTO CUELLAR PA-C 02/08/17 Albuterol Sulfate* (Proair HFA*) 8.5 Gm Hfa.aer.ad, 2 PUFF INH Q4H Y for WHEEZING AND SOB, #1 INHALER Prov:LAMBERTO CUELLAR PA-C 02/08/17 Azithromycin* (Zithromax*) 250 Mg Tablet, 250 MG PO .ZPACK DIRECTED, #6 TAB TAKE 500 MG (2 TABS) THE FIRST DAY THEN 250 MG (1 TAB) DAYS 2-5 Prov:LAMBERTO CUELLAR PA-C 02/08/17 Famotidine* (Pepcid*) 20 Mg Tablet, 20 MG PO BID for 4 Days, TAB Prov:MAT FU PA-C 01/03/17 Ibuprofen* (Motrin*) 600 Mg Tab, 600 MG PO Q6, #30 TAB Prov:BELINDA LEWIS PA-C 07/13/16 Famotidine* (Pepcid*) 20 Mg Tablet, 20 MG PO BID for 5 Days, TAB Prov:BELINDA LEWIS PA-C 07/13/16 Hydrocodone/Acetaminophen ([place] 5-325 Tablet) 1 Each Tablet, 1 EACH PO Q4, #15 TAB Prov:BELINDA LEWIS PA-C 07/13/16 Acetaminophen* (Tylophen*) 500 Mg Capsule, 1 CAP PO Q6H Y for PAIN AND OR ELEVATED TEMP, #20 CAP Prov:YUAN MULLEN 11/23/14 Prednisone* (Prednisone*) 20 Mg Tab, 40 MG PO DAILY for 4 Days, TAB Prov:YUAN MULLEN 11/23/14 Albuterol Sulfate* (Albuterol Sulfate* HFA) 8.5 Gm Hfa.aer.ad, 1-2 PUFF INH Q4 Y for SHORTNESS OF BREATH, #1 EA Prov:JERE TAN CHRIS Edward MAPPING TECHNICIAN 11/18/14 Reported Medications Albuterol Sulfate* (Ventolin HFA*) 18 Gm Hfa.aer.ad, 18 GM IH DAILY 03/04/12 Ibuprofen (Motrin) 400 Mg Tablet 01/13/12 Allergies Allergies: Coded Allergies: No Known Drug Allergy (Verified Allergy, Unknown, 01/03/17) Uncoded Allergies: SHRIMP (Allergy, Unknown, ITCHY THROAT RASH, 11/08/09) PMhx/Soc History of Surgery: Yes ( X 2) Anesthesia Reaction: No Hx Neurological Disorder: No Hx Respiratory Disorders: Yes (asthma) Hx Cardiac Disorders: No Hx Psychiatric Problems: No Hx Miscellaneous Medical Probl: No Hx Alcohol Use: No Hx Substance Use: No Hx Tobacco Use: No Smoking Status: Never smoker Physical Exam Vitals Vital Signs Date Time Temp Pulse Resp B/P Pulse Ox O2 Delivery O2 Flow Rate FiO2 02/08/17 13:37 85 20 97 21 02/08/17 11:11 98.3 85 20 118/67 97 Physical Exam GENERAL: WD/WN, in no apparent distress, non-toxic appearing HENT: NC/AT, bilateral TM has good cone of light EYES: Conjunctiva normal NECK: Supple PULM: Inspiratory and expiratory wheezing. Coarse breath sounds No tripod position, normal labored breathing, no stridor, no evidence of using accessory muscles. CV: Good capillary refill, good S1 and S2, no murmurs appreciated GI: Non-distended, no guarding BACK: No masses. EXT: No clubbing, cyanosis, or edema. NEURO: Moves on all fours SKIN: intact, no cyanosis. PSYCH: Normal mood Results 24 hrs Current Medications Medications (Trade) Dose Ordered Sig/Erich Route PRN Reason Start Time Stop Time Status Last Admin Dose Admin Albuterol (Proventil 0.5% (Neb)) 5 mg ONCE STAT INH 02/08/17 13:13 10/18/17 13:15 DC 02/08/17 13:37 Ipratropium [place] (Atrovent 0.02% (Neb)) 1 mg ONCE STAT INH 02/08/17 13:13 02/08/17 13:15 DC 02/08/17 13:37 Dexamethasone (Decadron) 10 mg ONCE STAT IM 02/08/17 13:13 02/08/17 13:15 DC 02/08/17 13:23 Albuterol (Proventil 0.083% (Neb)) 5 mg ONCE STAT NEB 02/08/17 14:43 02/08/17 14:44 DC Procedures/MDM This is a 27-year-old female with asthma presenting to the emergency department with signs and symptoms most consistent with asthma exacerbation and viral bronchitis. There was no evidence of pneumonia, respiratory distress, patient has stable vital signs and afebrile. In the ED RT was consulted and patient received 2 breathing treatments of albuterol and Atrovent. Patient significantly improved in symptoms. Patient was given 10 mg of Decadron IM. Chest x-ray did not show any evidence of acute pathology, no evidence of infiltrates, pneumothorax or pleural effusion. Patient stable to be discharged home to follow-up with primary care physician. Prescription for pro-air, Tylenol Zithromax, divided. Departure Diagnosis: Primary Impression: Asthma exacerbation Additional Impression: Acute bronchitis Condition: Stable LAMBERTO CUELLAR PA-C Feb 08, 2017 15:11
--- NOTE | 2017-02-08 15:24 | RADRPT ---
PROCEDURE: Chest x-ray CLINICAL INDICATION: Cough TECHNIQUE: Chest single view COMPARISON: 11/23/2014 FINDINGS: The heart is normal in size. The pulmonary vessels are normal in caliber. The lungs are clear. Th e costophrenic angles are sharp. The visualized bony thorax is unremarkable. IMPRESSION: No acute cardiopulmonary disease. RPTAT: HH .Rene Correa MD, Date Time Electronically viewed and signed by .Rene Correa MD, MD on 02/08/2017 15:24 .W/
[2017-02-08] MEDS ORDERED: AZIT250T94 PO (15:25)
[2017-02-08] MEDS ORDERED: ALBU8.5H3 INH (15:25)
[2017-02-08] MEDS ORDERED: BENZ100C70 PO (15:25)
[2017-02-08 16:45] VITALS: BP 109/70; PULSE 99; RESP 20; TEMP 98.6
== END 2017-02-08 16:47 | disposition home or self-care (01) ==
LOC: FTE 11:09
DX: J45.901 Unspecified asthma with (acute) exacerbation (principal); J20.9 Acute bronchitis, unspecified
CPT/HCPCS: 71010; 94644; 94664; 96372; J1100; Z7502; Z7610

== ENCOUNTER 2017-07-23 15:36 | Emergency (ER) | END 2017-07-23 15:59 | disposition home or self-care (01) ==

== ENCOUNTER 2017-07-26 12:56 | Emergency (ER) | END 2017-07-26 15:34 | disposition home or self-care (01) ==

== ENCOUNTER 2017-12-27 14:17 | Emergency (ER) | END 2017-12-27 19:44 | disposition home or self-care (01) ==

== ENCOUNTER 2018-01-25 23:29 | Emergency (ER) | END 2018-01-26 03:08 | disposition home or self-care (01) ==